=== PATIENT | female | born 1990 | race Caucasian/White ===

== ENCOUNTER 2018-04-04 11:28 | Outpatient (CLI) | payer OTHER ==
--- NOTE | 2018-04-04 11:52 | RAD ---
THREE VIEWS RIGHT THUMB: Date: 04-04-18 Comparison: None. History: Right thumb injury. FINDINGS: Mild degenerative change of the interphalangeal joint and first metacarpal phalangeal joint. No displ aced fracture or evidence of dislocation is seen. IMPRESSION: No acute osseous abnormality. POS: [facility]
== END 2018-04-04 11:29 | disposition home or self-care (01) ==
LOC: SCSRAD 11:28
PROVIDERS: ATTEND Family Medicine
DX: S63.114A Dislocation of metacarpophalangeal joint of right thumb, initial encounter (principal)